=== PATIENT | female | born 1935 | race Caucasian/White ===

== ENCOUNTER 2019-01-11 10:51 | Inpatient (IN) ==
[2019-01-11 12:07] LABS: Basophils % 0.3 % (0.0-0.8); Eosinophils % 0.1 % (0.00-10.9); Hematocrit 37.9 VOL% (35.7-47.0); Hemoglobin 11.9 GM/DL (12.0-16.0); Immature Granulocytes % 0.4 %; Immature Granulocytes Absolute 0.04 #; Lymphocytes # 0.8 10*3/uL (1.4-4.0); Lymphocytes % 8.8 % (21.3-54.2); Mean Corpuscular HGB Conc 31.4 GM/DL (32-36); Mean Corpuscular Volume 91.8 FL (87-102); Mean Platelet Volume 9.8 FL (9.6-12.0); Monocytes % 12.2 % (1.7-12.7); Neutrophils % 78.2 % (38.7-73.9); Platelet Count 185 T/CUMM (130-400); Red Blood Count 4.13 MC/CUMM (3.8-5.5); Red Cell Distribution Width 13.5 % (9.3-17.3); White Blood Count 9.2 T/CUMM (4-12)
[2019-01-11 12:23] LABS: Apearance,Urine CLEAR (Clear); Bilirubin,Urine Negative (Negative); Blood, Urine Moderate mg/dL (Negative); Glucose,Urine (UA) Negative (Negative); Hyaline Casts,Urine 5 /LPF (0-3); Ketones,Urine Negative (Negative); Mucus,Urine Occasional /LPF (Occasional); Nitrite,Urine Negative (Negative); Protein,Urine Negative; RBC,Urine 11 /HPF (0-4); Urine Color Yellow (Yellow); Urine Urobilinogen < 2.0 EU/DL (0.2-1.0); WBC,Urine 2 /HPF (0-6)
[2019-01-11 12:32] LABS: Albumin 3.4 G/DL (3.4-5.0); Bilirubin,Total 0.8 MG/DL (0.2-1.0); Calcium 9.1 MG/DL (8.5-10.1)
[2019-01-11] MEDS ORDERED: ENOXAPARIN 30 MG/0.3 ML SYRINGE SUBCUT STA (12:52)
[2019-01-11] MEDS ORDERED: ASPIRIN CHEW 81 MG TABLET PO STA (12:52)
[2019-01-11] MEDS ORDERED: ENOXAPARIN 100 MG/ML SYRINGE SUBCUT ONE (12:55)
[2019-01-11 13:07] LABS: INR 1.6; PT Patient Result 16.9 SECS
[2019-01-11] MEDS ORDERED: ACETAMINOPHEN 325 MG TABLET PO PRN (13:52)
[2019-01-11] MEDS ORDERED: ONDANSETRON 4 MG/2 ML VIAL IV PRN (13:52)
[2019-01-11 15:39] LABS: Troponin I 0.188 NG/ML (0.00-0.045)
[2019-01-11 17:54] LABS: Troponin I 0.152 NG/ML (0.00-0.045)
[2019-01-11] MEDS: DOXYCYCLINE HYCLATE 100 MG CAPSULE PO SCH (21:02)
[2019-01-12 05:05] LABS: Basophils % 0.3 % (0.0-0.8); Hematocrit 36.7 VOL% (35.7-47.0); Hemoglobin 11.7 GM/DL (12.0-16.0); Immature Granulocytes % 0.3 %; Immature Granulocytes Absolute 0.02 #; Lymphocytes # 1.1 10*3/uL (1.4-4.0); Lymphocytes % 14.3 % (21.3-54.2); Mean Corpuscular HGB Conc 31.9 GM/DL (32-36); Mean Corpuscular Volume 91.1 FL (87-102); Mean Platelet Volume 10.2 FL (9.6-12.0); Monocytes % 13.1 % (1.7-12.7); Platelet Count 181 T/CUMM (130-400); Red Blood Count 4.03 MC/CUMM (3.8-5.5); Red Cell Distribution Width 13.3 % (9.3-17.3); White Blood Count 7.4 T/CUMM (4-12)
[2019-01-12 05:51] LABS: Calcium 9.1 MG/DL (8.5-10.1); Risk Ratio 3.67; Thyroid Stimulating Hormone 0.007 uIU/ml (0.358-3.74); VLDL CHOLESTEROL 17.2 MG/DL
[2019-01-12] MEDS ORDERED: LEVOTHYROXINE 137 MCG TABLET PO SCH (09:00)
[2019-01-12] MEDS: ENOXAPARIN 40 MG/0.4 ML SYRINGE SUBCUT SCH (09:11)
[2019-01-12] MEDS: WARFARIN 5 MG TABLET PO SCH ×2 (09:12→09:50)
[2019-01-12] MEDS: DOXYCYCLINE HYCLATE 100 MG CAPSULE PO SCH ×2 (09:12→21:18)
[2019-01-12] MEDS: ASPIRIN EC 81 MG TABLET PO SCH ×2 (09:12→10:02)
[2019-01-12] MEDS: FUROSEMIDE 40 MG TABLET PO SCH (09:12)
[2019-01-12] MEDS: PANTOPRAZOLE 40 MG TABLET PO SCH (09:12)
[2019-01-12] MEDS: METOPROLOL TARTRATE 50 MG TABLET PO SCH (09:12)
[2019-01-12] MEDS: SODIUM CHLORIDE 0.9% 1,000 ML IV SCH ×2 (09:59→21:17)
[2019-01-12] MEDS ORDERED: MAGNESIUM SULF RIDER 2 GM in PREMIX 1 EACH IV PRN (11:21)
[2019-01-13 05:07] LABS: Basophils % 0.4 % (0.0-0.8); Eosinophils % 0.2 % (0.00-10.9); Hematocrit 36.1 VOL% (35.7-47.0); Hemoglobin 11.5 GM/DL (12.0-16.0); Immature Granulocytes % 0.4 %; Immature Granulocytes Absolute 0.03 #; Lymphocytes # 1.6 10*3/uL (1.4-4.0); Lymphocytes % 19.5 % (21.3-54.2); Mean Corpuscular HGB Conc 31.9 GM/DL (32-36); Mean Corpuscular Volume 89.8 FL (87-102); Mean Platelet Volume 10.5 FL (9.6-12.0); Neutrophils % 64.5 % (38.7-73.9); Platelet Count 179 T/CUMM (130-400); Red Blood Count 4.02 MC/CUMM (3.8-5.5); Red Cell Distribution Width 13.4 % (9.3-17.3); White Blood Count 8.2 T/CUMM (4-12)
[2019-01-13 05:28] LABS: Osmolality,Calculated 283.4 MOS/KG (273-304)
[2019-01-13 05:32] LABS: INR 1.4
[2019-01-13] MEDS: SODIUM CHLORIDE 0.9% 1,000 ML IV SCH ×2 (06:21→16:27)
[2019-01-13] MEDS: LEVOTHYROXINE 88 MCG TABLET PO SCH (06:21)
[2019-01-13] MEDS ORDERED: diphenhydrAMINE CAP 25 MG CAPSULE ONE ×2 (06:45→06:51)
[2019-01-13] MEDS ORDERED: DIAZEPAM 5 MG TABLET ONE ×2 (06:45→06:51)
[2019-01-13] MEDS ORDERED: HEPARIN/NACL 0.9% 2 UNITS/ML 1,000 ML IV ONE (06:55)
[2019-01-13] MEDS ORDERED: LIDOCAINE 1% 20 ML VIAL ONE (06:55)
[2019-01-13] MEDS ORDERED: MIDAZOLAM 2 MG/2 ML VIAL ONE (07:23)
[2019-01-13] MEDS ORDERED: fentaNYL 100 MCG/2 ML VIAL ONE (07:23)
[2019-01-13] MEDS ORDERED: ACETAMINOPHEN 325 MG TABLET ONE (07:26)
[2019-01-13] MEDS ORDERED: HEPARIN/NACL 0.9% 2 UNITS/ML 500 ML IV ONE (07:48)
[2019-01-13] MEDS: ALBUTEROL/IPRATROPIUM 3 ML NEB RESP TX SCH ×5 (09:30→23:45)
[2019-01-13] MEDS: PIPERACILLIN/TAZOBACTAM 3,375 MG in SODIUM CHLORIDE 0.9% 100 ML IV SCH ×3 (10:11→23:54)
[2019-01-13] MEDS ORDERED: diphenhydrAMINE CAP 25 MG CAPSULE PO ONE (11:00)
[2019-01-13] MEDS ORDERED: DIAZEPAM 5 MG TABLET PO ONE (11:00)
[2019-01-13] MEDS: DOXYCYCLINE HYCLATE 100 MG CAPSULE PO SCH ×2 (11:33→21:33)
[2019-01-13] MEDS: PANTOPRAZOLE 40 MG TABLET PO SCH (11:33)
[2019-01-13] MEDS: FUROSEMIDE 40 MG TABLET PO SCH (11:33)
[2019-01-13] MEDS: METOPROLOL TARTRATE 50 MG TABLET PO SCH (11:33)
[2019-01-13] MEDS: ENOXAPARIN 40 MG/0.4 ML SYRINGE SUBCUT SCH (11:34)
[2019-01-13] MEDS: ASPIRIN EC 81 MG TABLET PO SCH (11:39)
[2019-01-13 13:33] LABS: Apearance,Urine CLEAR (Clear); Bilirubin,Urine Negative (Negative); Blood, Urine Moderate mg/dL (Negative); Glucose,Urine (UA) Negative (Negative); Ketones,Urine Negative (Negative); Mucus,Urine Occasional /LPF (Occasional); Nitrite,Urine Negative (Negative); Protein,Urine Negative; RBC,Urine 2 /HPF (0-4); Urine Color Straw (Yellow); Urine Specific Gravity 1.012 (1.001-1.035); Urine Urobilinogen < 2.0 EU/DL (0.2-1.0); WBC,Urine 1 /HPF (0-6)
[2019-01-14] MEDS: ALBUTEROL/IPRATROPIUM 3 ML NEB RESP TX SCH ×7 (02:47→23:24)
[2019-01-14 04:29] LABS: Basophils % 0.4 % (0.0-0.8); Eosinophils # 0.1 10*3/uL (0.0-0.87); Eosinophils % 1.1 % (0.00-10.9); Hematocrit 33.5 VOL% (35.7-47.0); Hemoglobin 10.5 GM/DL (12.0-16.0); Immature Granulocytes % 0.3 %; Immature Granulocytes Absolute 0.02 #; Lymphocytes # 1.5 10*3/uL (1.4-4.0); Lymphocytes % 20.7 % (21.3-54.2); Mean Corpuscular HGB Conc 31.3 GM/DL (32-36); Mean Platelet Volume 10.1 FL (9.6-12.0); Monocytes % 13.2 % (1.7-12.7); Neutrophils % 64.3 % (38.7-73.9); Platelet Count 169 T/CUMM (130-400); Red Blood Count 3.64 MC/CUMM (3.8-5.5); Red Cell Distribution Width 13.7 % (9.3-17.3); White Blood Count 7.3 T/CUMM (4-12)
[2019-01-14 04:50] LABS: Osmolality,Calculated 285.1 MOS/KG (273-304); Osmolality,Calculated 288.8 MOS/KG (273-304)
[2019-01-14] MEDS: SODIUM CHLORIDE 0.9% 1,000 ML IV SCH (05:22)
[2019-01-14] MEDS: LEVOTHYROXINE 88 MCG TABLET PO SCH (06:14)
[2019-01-14] MEDS: POTASSIUM CHLORIDE RIDER 10 MEQ in PREMIX 1 EACH IV PRN ×2 (06:44→08:59)
[2019-01-14] MEDS: ASPIRIN EC 81 MG TABLET PO SCH (08:54)
[2019-01-14] MEDS: METOPROLOL TARTRATE 25 MG TABLET PO SCH (08:54)
[2019-01-14] MEDS: FUROSEMIDE 40 MG TABLET PO SCH (08:54)
[2019-01-14] MEDS: PANTOPRAZOLE 40 MG TABLET PO SCH (08:54)
[2019-01-14] MEDS: DOXYCYCLINE HYCLATE 100 MG CAPSULE PO SCH ×2 (08:54→21:11)
[2019-01-14] MEDS: ENOXAPARIN 40 MG/0.4 ML SYRINGE SUBCUT SCH (08:55)
[2019-01-14] MEDS: PIPERACILLIN/TAZOBACTAM 3,375 MG in SODIUM CHLORIDE 0.9% 100 ML IV SCH ×2 (08:55→17:51)
[2019-01-14] MEDS: amLODIPine 5 MG TABLET PO SCH (12:33)
[2019-01-14] MEDS ORDERED: WARFARIN 5 MG TABLET PO ONE (19:12)
[2019-01-15] MEDS: PIPERACILLIN/TAZOBACTAM 3,375 MG in SODIUM CHLORIDE 0.9% 100 ML IV SCH ×3 (01:14→17:22)
[2019-01-15] MEDS: ALBUTEROL/IPRATROPIUM 3 ML NEB RESP TX SCH ×5 (02:02→20:10)
[2019-01-15] MEDS: LEVOTHYROXINE 88 MCG TABLET PO SCH (05:30)
[2019-01-15 08:59] LABS: Basophils % 0.5 % (0.0-0.8); Eosinophils # 0.3 10*3/uL (0.0-0.87); Eosinophils % 3.8 % (0.00-10.9); Hematocrit 33.3 VOL% (35.7-47.0); Hemoglobin 10.3 GM/DL (12.0-16.0); Immature Granulocytes % 0.7 %; Immature Granulocytes Absolute 0.05 #; Lymphocytes # 1.2 10*3/uL (1.4-4.0); Mean Corpuscular HGB Conc 30.9 GM/DL (32-36); Mean Corpuscular Volume 92.5 FL (87-102); Mean Platelet Volume 9.8 FL (9.6-12.0); Monocytes % 11.2 % (1.7-12.7); Neutrophils % 67.8 % (38.7-73.9); Platelet Count 204 T/CUMM (130-400); Red Cell Distribution Width 13.8 % (9.3-17.3); White Blood Count 7.7 T/CUMM (4-12)
[2019-01-15 09:07] LABS: INR 1.2; PT Patient Result 13.3 SECS
[2019-01-15 09:25] LABS: Calcium 9.3 MG/DL (8.5-10.1)
[2019-01-15] MEDS: DOXYCYCLINE HYCLATE 100 MG CAPSULE PO SCH ×2 (09:25→21:04)
[2019-01-15] MEDS: METOPROLOL TARTRATE 25 MG TABLET PO SCH (09:25)
[2019-01-15] MEDS: PANTOPRAZOLE 40 MG TABLET PO SCH (09:25)
[2019-01-15] MEDS: FUROSEMIDE 40 MG TABLET PO SCH (09:25)
[2019-01-15] MEDS: POTASSIUM CHLORIDE 20 MEQ TABLET PO PRN (09:25)
[2019-01-15] MEDS: amLODIPine 5 MG TABLET PO SCH (09:25)
[2019-01-15] MEDS: ENOXAPARIN 40 MG/0.4 ML SYRINGE SUBCUT SCH (09:26)
[2019-01-15] MEDS: ASPIRIN EC 81 MG TABLET PO SCH (09:26)
[2019-01-15] MEDS: NYSTATIN 500,000 UNIT/5 ML UDCUP SWISH/SWAL SCH ×3 (13:05→21:04)
[2019-01-15] MEDS ORDERED: ENOXAPARIN 60 MG/0.6 ML SYRINGE SUBCUT ONE (13:30)
[2019-01-15] MEDS ORDERED: SODIUM CHLORIDE 0.9% 1,000 ML IV SCH (13:30)
[2019-01-15] MEDS ORDERED: WARFARIN 5 MG TABLET PO SCH (18:00)
[2019-01-15] MEDS: ENOXAPARIN 100 MG/ML SYRINGE SUBCUT SCH (21:04)
[2019-01-16] MEDS: PIPERACILLIN/TAZOBACTAM 3,375 MG in SODIUM CHLORIDE 0.9% 100 ML IV SCH ×2 (00:10→08:24)
[2019-01-16 03:36] LABS: Basophils # 0.1 10*3/uL (0.0-0.2); Basophils % 0.6 % (0.0-0.8); Eosinophils # 0.6 10*3/uL (0.0-0.87); Hemoglobin 9.4 GM/DL (12.0-16.0); Immature Granulocytes % 0.7 %; Immature Granulocytes Absolute 0.06 #; Lymphocytes % 24.8 % (21.3-54.2); Mean Corpuscular HGB Conc 31.3 GM/DL (32-36); Mean Corpuscular Volume 91.7 FL (87-102); Mean Platelet Volume 10.1 FL (9.6-12.0); Monocytes % 10.9 % (1.7-12.7); Platelet Count 221 T/CUMM (130-400); Red Blood Count 3.27 MC/CUMM (3.8-5.5); Red Cell Distribution Width 13.9 % (9.3-17.3)
[2019-01-16 03:41] LABS: INR 1.4; PT Patient Result 15.1 SECS
[2019-01-16 04:00] LABS: Calcium 9.4 MG/DL (8.5-10.1); Osmolality,Calculated 285.8 MOS/KG (273-304)
[2019-01-16] MEDS: ALBUTEROL/IPRATROPIUM 3 ML NEB RESP TX SCH ×4 (04:05→11:00)
[2019-01-16] MEDS: LEVOTHYROXINE 88 MCG TABLET PO SCH (05:33)
[2019-01-16] MEDS: POTASSIUM CHLORIDE 20 MEQ TABLET PO PRN ×3 (08:01→12:10)
[2019-01-16] MEDS: NYSTATIN 500,000 UNIT/5 ML UDCUP SWISH/SWAL SCH ×2 (08:25→12:11)
[2019-01-16] MEDS: DOXYCYCLINE HYCLATE 100 MG CAPSULE PO SCH (08:25)
[2019-01-16] MEDS: ASPIRIN EC 81 MG TABLET PO SCH (08:25)
[2019-01-16] MEDS: amLODIPine 5 MG TABLET PO SCH (08:25)
[2019-01-16] MEDS: PANTOPRAZOLE 40 MG TABLET PO SCH (08:25)
[2019-01-16] MEDS: METOPROLOL TARTRATE 25 MG TABLET PO SCH (08:25)
[2019-01-16] MEDS: ENOXAPARIN 100 MG/ML SYRINGE SUBCUT SCH (08:25)
[2019-01-16] MEDS: FUROSEMIDE 40 MG TABLET PO SCH (08:25)
[2019-01-16] MEDS ORDERED: POTASSIUM CHLORIDE 20 MEQ TABLET PO SCH (09:00)
[2019-01-16 11:42] VITALS: BP 122/67
== END 2019-01-16 14:55 | disposition home or self-care (01) | DRG 287 ==
LOC: N.ED 10:51 → N.EDINP 13:48 → SUATTDRO 13:48 → N.TELES 16:13
PROVIDERS: ADMIT Internal Medicine; ATTEND Internal Medicine

== ENCOUNTER 2021-10-17 15:16 | Inpatient (IN) ==
[2021-10-17] MEDS ORDERED: traMADol 50 MG TABLET PO PRN (18:15)
[2021-10-17] MEDS ORDERED: HYDROmorphone 2 MG/1 ML VIAL IV PRN (18:19)
[2021-10-17] MEDS ORDERED: GENTAMICIN INJ 80 MG/50 ML PREMIX IV ONE (20:00)
[2021-10-17] MEDS: POTASSIUM CHLORIDE INJ 10 MEQ in SODIUM CHLORIDE 0.9% 1,000 ML IV SCH (20:17)
[2021-10-17 20:49] LABS: Basophils % 0.2 % (0.0-0.8); Eosinophils # 0.3 10*3/uL (0.0-0.87); Eosinophils % 2.1 % (0.00-10.9); Hematocrit 34.6 VOL% (35.7-47.0); Hemoglobin 11.4 GM/DL (12.0-16.0); Immature Granulocytes Absolute 0.13 #; Lymphocytes # 2.4 10*3/uL (1.4-4.0); Lymphocytes % 19.1 % (21.3-54.2); Mean Corpuscular HGB Conc 32.9 GM/DL (32-36); Mean Corpuscular Volume 90.8 FL (87-102); Mean Platelet Volume 9.2 FL (9.6-12.0); Monocytes % 7.1 % (1.7-12.7); Neutrophils % 70.5 % (38.7-73.9); Platelet Count 511 T/CUMM (130-400); Red Blood Count 3.81 MC/CUMM (3.8-5.5); Red Cell Distribution Width 16.7 % (9.3-17.3); White Blood Count 12.6 T/CUMM (4-12)
[2021-10-17 21:08] LABS: Albumin 2.4 G/DL (3.4-5.0); Bilirubin,Total 3.3 MG/DL (0.20-1.00); Calcium 9.7 MG/DL (8.5-10.1); Osmolality,Calculated 280.4 MOS/KG (273-304); Potassium 3.5 MMOL/L (3.5-5.1); Total Protein 7.2 G/DL (6.4-8.2)
[2021-10-17 21:13] LABS: INR 1.9; PT Patient Result 19.9 SECS (10.5-12.0); Partial Thromboplastin Time 34.4 SECS (23.8-32.1)
[2021-10-17] MEDS: AMPICILLIN/SULBACTAM 1,500 MG in SODIUM CHLORIDE 0.9% 100 ML IV SCH (23:07)
[2021-10-18] MEDS: AMPICILLIN/SULBACTAM 1,500 MG in SODIUM CHLORIDE 0.9% 100 ML IV SCH ×3 (04:23→20:35)
[2021-10-18 05:36] LABS: Basophils % 0.4 % (0.0-0.8); Eosinophils # 0.3 10*3/uL (0.0-0.87); Eosinophils % 2.7 % (0.00-10.9); Hematocrit 33.9 VOL% (35.7-47.0); Hemoglobin 10.9 GM/DL (12.0-16.0); Immature Granulocytes % 1.1 %; Immature Granulocytes Absolute 0.12 #; Lymphocytes # 2.3 10*3/uL (1.4-4.0); Lymphocytes % 20.8 % (21.3-54.2); Mean Corpuscular HGB Conc 32.2 GM/DL (32-36); Mean Corpuscular Volume 91.6 FL (87-102); Mean Platelet Volume 9.6 FL (9.6-12.0); Monocytes % 7.9 % (1.7-12.7); Neutrophils % 67.1 % (38.7-73.9); Platelet Count 530 T/CUMM (130-400); Red Cell Distribution Width 16.8 % (9.3-17.3); White Blood Count 11.1 T/CUMM (4-12)
[2021-10-18 05:40] LABS: INR 1.7; PT Patient Result 18.6 SECS (10.5-12.0)
[2021-10-18 05:57] LABS: Albumin 2.2 G/DL (3.4-5.0); Bilirubin,Total 2.6 MG/DL (0.20-1.00); Osmolality,Calculated 279.4 MOS/KG (273-304); Potassium 3.3 MMOL/L (3.5-5.1)
[2021-10-18] MEDS ORDERED: INDOMETHACIN SUPP 50 MG SUPP RECTAL ONE (09:30)
[2021-10-18] MEDS: LACTATED RINGERS 1,000 ML IV SCH (10:54)
[2021-10-18] MEDS ORDERED: LIDOCAINE 2% 5 ML VIAL ONE (12:06)
[2021-10-18] MEDS ORDERED: propofoL 200 MG/20 ML VIAL IV ONE (12:06)
[2021-10-18] MEDS ORDERED: fentaNYL 100 MCG/2 ML VIAL ONE (12:09)
[2021-10-18] MEDS ORDERED: MIDAZOLAM 2 MG/2 ML VIAL ONE (12:09)
[2021-10-18] MEDS ORDERED: ePHEDrine 50 MG/ML VIAL ONE (12:54)
[2021-10-18] MEDS ORDERED: ONDANSETRON 4 MG/2 ML VIAL ONE (12:58)
[2021-10-18] MEDS ORDERED: PHENYLEPHRINE 1 MG/10 ML SYRINGE IV ONE (12:59)
[2021-10-18] MEDS: POTASSIUM CHLORIDE INJ 10 MEQ in SODIUM CHLORIDE 0.9% 1,000 ML IV SCH (17:14)
[2021-10-19] MEDS: POTASSIUM CHLORIDE INJ 10 MEQ in SODIUM CHLORIDE 0.9% 1,000 ML IV SCH ×2 (02:47→17:38)
[2021-10-19] MEDS: AMPICILLIN/SULBACTAM 1,500 MG in SODIUM CHLORIDE 0.9% 100 ML IV SCH ×3 (05:22→21:21)
[2021-10-19 05:27] LABS: Basophils # 0.1 10*3/uL (0.0-0.2); Basophils % 0.4 % (0.0-0.8); Eosinophils # 0.3 10*3/uL (0.0-0.87); Eosinophils % 2.1 % (0.00-10.9); Hematocrit 31.4 VOL% (35.7-47.0); Immature Granulocytes % 0.5 %; Immature Granulocytes Absolute 0.07 #; Lymphocytes # 1.8 10*3/uL (1.4-4.0); Mean Corpuscular HGB Conc 31.8 GM/DL (32-36); Mean Corpuscular Volume 92.9 FL (87-102); Mean Platelet Volume 9.6 FL (9.6-12.0); Monocytes % 7.5 % (1.7-12.7); Neutrophils % 75.5 % (38.7-73.9); Platelet Count 469 T/CUMM (130-400); Red Blood Count 3.38 MC/CUMM (3.8-5.5); White Blood Count 12.9 T/CUMM (4-12)
[2021-10-19 05:52] LABS: Bilirubin,Total 2.7 MG/DL (0.20-1.00); Calcium 9.1 MG/DL (8.5-10.1); Osmolality,Calculated 279.3 MOS/KG (273-304); Potassium 3.8 MMOL/L (3.5-5.1); Total Protein 6.3 G/DL (6.4-8.2)
[2021-10-19] MEDS ORDERED: METOPROLOL TARTRATE 50 MG TABLET PO SCH (09:00)
[2021-10-19] MEDS ORDERED: INDOCYANINE GREEN 25 MG VIAL IV ONE (09:00)
[2021-10-19] MEDS: ASPIRIN EC 81 MG TABLET PO SCH (09:50)
[2021-10-19] MEDS ORDERED: ONDANSETRON 4 MG/2 ML VIAL ONE (11:03)
[2021-10-19] MEDS ORDERED: ROCURONIUM 50 MG/5 ML VIAL IV ONE (11:03)
[2021-10-19] MEDS ORDERED: SEVOFLURANE 1 UNIT/15 MINUTE INH ONE (11:03)
[2021-10-19] MEDS ORDERED: propofoL 200 MG/20 ML VIAL IV ONE (11:03)
[2021-10-19] MEDS ORDERED: LIDOCAINE 2% 5 ML VIAL ONE (11:03)
[2021-10-19] MEDS ORDERED: fentaNYL 100 MCG/2 ML VIAL ONE (11:03)
[2021-10-19] MEDS ORDERED: TISSUE ADHESIVE 1 EACH APPLICATOR TOP ONE (11:17)
[2021-10-19] MEDS ORDERED: BUPIVACAINE MPF 0.25% 30 ML VIAL ONE (11:17)
[2021-10-19] MEDS ORDERED: LIDOCAINE 1%/EPI INJ 20 ML VIAL ONE (11:17)
[2021-10-19] MEDS ORDERED: PHENYLEPHRINE 1 MG/10 ML SYRINGE IV ONE (11:55)
[2021-10-19] MEDS ORDERED: ePHEDrine 50 MG/ML VIAL ONE (12:05)
[2021-10-19] MEDS ORDERED: GLYCOPYRROLATE 0.4 MG/2 ML VIAL ONE (12:07)
[2021-10-19] MEDS ORDERED: LABETALOL 20 MG/4 ML SYRINGE IV ONE (13:00)
[2021-10-19] MEDS: LACTATED RINGERS 1,000 ML IV SCH (13:25)
[2021-10-19] MEDS ORDERED: ALBUTEROL 2.5 MG/3 ML NEB RESP TX ONE (15:22)
[2021-10-19] MEDS: ursodioL 300 MG CAPSULE PO SCH (20:35)
[2021-10-19] MEDS: hydrALAZINE 20 MG/1 ML VIAL IV PRN (20:36)
[2021-10-20] MEDS: hydrALAZINE 20 MG/1 ML VIAL IV PRN ×2 (04:15→11:33)
[2021-10-20] MEDS: AMPICILLIN/SULBACTAM 1,500 MG in SODIUM CHLORIDE 0.9% 100 ML IV SCH ×2 (04:16→15:32)
[2021-10-20 05:08] LABS: Basophils % 0.3 % (0.0-0.8); Eosinophils # 0.1 10*3/uL (0.0-0.87); Eosinophils % 0.7 % (0.00-10.9); Hematocrit 34.2 VOL% (35.7-47.0); Hemoglobin 10.8 GM/DL (12.0-16.0); Immature Granulocytes % 0.6 %; Immature Granulocytes Absolute 0.08 #; Lymphocytes # 1.3 10*3/uL (1.4-4.0); Lymphocytes % 8.6 % (21.3-54.2); Mean Corpuscular HGB Conc 31.6 GM/DL (32-36); Mean Corpuscular Volume 93.2 FL (87-102); Mean Platelet Volume 9.4 FL (9.6-12.0); Monocytes % 6.1 % (1.7-12.7); Neutrophils % 83.7 % (38.7-73.9); Platelet Count 491 T/CUMM (130-400); Red Blood Count 3.67 MC/CUMM (3.8-5.5); Red Cell Distribution Width 17.3 % (9.3-17.3); White Blood Count 14.5 T/CUMM (4-12)
[2021-10-20 05:28] LABS: Albumin 2.2 G/DL (3.4-5.0); Bilirubin,Total 3.1 MG/DL (0.20-1.00); Calcium 9.6 MG/DL (8.5-10.1); Osmolality,Calculated 273.7 MOS/KG (273-304); Potassium 3.9 MMOL/L (3.5-5.1); Total Protein 6.8 G/DL (6.4-8.2)
[2021-10-20] MEDS: ursodioL 300 MG CAPSULE PO SCH ×2 (08:56→20:07)
[2021-10-20] MEDS: ASPIRIN EC 81 MG TABLET PO SCH (08:57)
[2021-10-20] MEDS: NIFEdipine 10 MG CAPSULE PO PRN (09:02)
[2021-10-20] MEDS ORDERED: METOPROLOL TARTRATE 25 MG TABLET PO SCH (09:11)
[2021-10-20] MEDS: VALSARTAN 160 MG TABLET PO SCH ×2 (09:22→20:07)
[2021-10-20] MEDS: POTASSIUM CHLORIDE INJ 10 MEQ in SODIUM CHLORIDE 0.9% 1,000 ML IV SCH ×2 (09:23→20:07)
[2021-10-20] MEDS ORDERED: METOPROLOL TARTRATE 25 MG TABLET PO ONE (13:06)
[2021-10-21 03:57] LABS: Basophils # 0.1 10*3/uL (0.0-0.2); Basophils % 0.3 % (0.0-0.8); Eosinophils # 0.2 10*3/uL (0.0-0.87); Eosinophils % 1.1 % (0.00-10.9); Hematocrit 32.7 VOL% (35.7-47.0); Hemoglobin 10.4 GM/DL (12.0-16.0); Immature Granulocytes % 0.8 %; Immature Granulocytes Absolute 0.14 #; Lymphocytes # 1.8 10*3/uL (1.4-4.0); Lymphocytes % 10.6 % (21.3-54.2); Mean Corpuscular HGB Conc 31.8 GM/DL (32-36); Mean Corpuscular Volume 94.2 FL (87-102); Mean Platelet Volume 9.2 FL (9.6-12.0); Monocytes % 7.1 % (1.7-12.7); Neutrophils % 80.1 % (38.7-73.9); Platelet Count 458 T/CUMM (130-400); Red Blood Count 3.47 MC/CUMM (3.8-5.5); Red Cell Distribution Width 17.7 % (9.3-17.3); White Blood Count 16.8 T/CUMM (4-12)
[2021-10-21 04:26] LABS: Bilirubin,Total 2.8 MG/DL (0.20-1.00); Calcium 9.5 MG/DL (8.5-10.1); Osmolality,Calculated 277.4 MOS/KG (273-304); Potassium 3.7 MMOL/L (3.5-5.1); Total Protein 6.5 G/DL (6.4-8.2)
[2021-10-21] MEDS: LEVOTHYROXINE 88 MCG TABLET PO SCH (06:03)
[2021-10-21] MEDS: ursodioL 300 MG CAPSULE PO SCH ×2 (08:05→21:24)
[2021-10-21] MEDS: VALSARTAN 160 MG TABLET PO SCH ×2 (08:06→21:24)
[2021-10-21] MEDS: ASPIRIN EC 81 MG TABLET PO SCH (08:06)
[2021-10-21] MEDS: METOPROLOL TARTRATE 50 MG TABLET PO SCH (08:06)
[2021-10-21] MEDS: CALCIUM (CARBONATE)/VITAMIN D 600 MG-400 UNIT TABLET PO SCH (08:06)
[2021-10-21] MEDS: ATORVASTATIN 10 MG TABLET PO SCH (08:07)
[2021-10-21] MEDS: LACTATED RINGERS 1,000 ML IV SCH ×2 (08:18→10:07)
[2021-10-21] MEDS: POTASSIUM CHLORIDE INJ 10 MEQ in SODIUM CHLORIDE 0.9% 1,000 ML IV SCH (09:40)
[2021-10-21] MEDS: NIFEdipine 10 MG CAPSULE PO PRN (11:10)
[2021-10-21] MEDS: hydrALAZINE 25 MG TABLET PO SCH (21:24)
[2021-10-22] MEDS: POTASSIUM CHLORIDE INJ 10 MEQ in SODIUM CHLORIDE 0.9% 1,000 ML IV SCH (00:20)
[2021-10-22] MEDS: LEVOTHYROXINE 88 MCG TABLET PO SCH (06:30)
[2021-10-22] MEDS: METOPROLOL TARTRATE 50 MG TABLET PO SCH (10:28)
[2021-10-22] MEDS: ASPIRIN EC 81 MG TABLET PO SCH (10:28)
[2021-10-22] MEDS: ursodioL 300 MG CAPSULE PO SCH (10:28)
[2021-10-22] MEDS: CALCIUM (CARBONATE)/VITAMIN D 600 MG-400 UNIT TABLET PO SCH (10:28)
[2021-10-22] MEDS: ATORVASTATIN 10 MG TABLET PO SCH (10:28)
[2021-10-22] MEDS: VALSARTAN 160 MG TABLET PO SCH (10:28)
[2021-10-22] MEDS: hydrALAZINE 25 MG TABLET PO SCH (10:47)
[2021-10-22 12:14] VITALS: BP 150/79
== END 2021-10-22 15:10 | disposition home or self-care (01) | DRG 418 ==
LOC: N.5E 16:10 → N.ICU 10-19 15:36 → N.5E 10-21 14:27
PROVIDERS: ADMIT Internal Medicine Gastroenterology; ATTEND Internal Medicine Gastroenterology